=== PATIENT | female | born 1985 | race Caucasian/White ===

== ENCOUNTER 2016-02-27 20:42 | Emergency (ER) | payer MEDICAID ==
[2016-02-27] MEDS ORDERED: ONDANSETRON 4 MG VIAL ONE (22:16)
[2016-02-27] MEDS ORDERED: SODIUM CHLORIDE 0.9% 1,000 ML ONE (22:17)
[2016-02-27] MEDS ORDERED: KETOROLAC 30 MG/ML VIAL ONE (22:17)
[2016-02-27] MEDS ORDERED: TRAMADOL 50 MG TAB ONE (23:27)
== END 2016-02-27 23:34 | disposition home or self-care (01) ==
LOC: ER 20:42
DX: R10.9 Unspecified abdominal pain (principal); Z79.899 Other long term (current) drug therapy; F17.210 Nicotine dependence, cigarettes, uncomplicated
CPT/HCPCS: 36415; 80053; 81001; 83690; 84703; 85025; 96361; 96374; 96375